=== PATIENT | female | born 1955 | race Caucasian/White ===

== ENCOUNTER 2021-03-27 12:53 | Emergency (ER) | payer OTHER, BC ==
[~2021-03-27] VITALS: Ht 160 cm; Wt 50.0 kg
[2021-03-27] MEDS ORDERED: CALCI17 PO (13:10)
[2021-03-27] MEDS ORDERED: MULTIVITAMI1 PO (13:10)
[2021-03-27] MEDS ORDERED: D350 MCG (13:11)
[2021-03-27] MEDS ORDERED: MAGNESIUM250 M2 PO (13:11)
[2021-03-27 14:50] VITALS: BP 139/74
== END 2021-03-27 14:50 | disposition home or self-care (01) | DRG 605 ==
LOC: ED 12:53
DX: S90.32XA Contusion of left foot, initial encounter (principal); S90.02XA Contusion of left ankle, initial encounter; S90.511A Abrasion, right ankle, initial encounter; W20.8XXA Other cause of strike by thrown, projected or falling object, initial encounter; Y93.89 Activity, other specified; Y92.89 Other specified places as the place of occurrence of the external cause; Y99.0 Civilian activity done for income or pay